=== PATIENT | female | born 1955 | race Caucasian/White ===

== ENCOUNTER 2020-01-30 22:08 | Inpatient (IN) | payer OTHER ==
[~2020-01-30] VITALS: Ht 167.6 cm; Wt 82.6 kg
[2020-01-30 23:25] VITALS: BP 113/52
[2020-01-31] VITALS (14 sets, daily range): BP systolic 88–118; BP diastolic 48–59
[2020-01-31 00:41] LABS: CALCIUM 8.6 mg/dL (8.5-10.1); CREATININE 1.6 mg/dL (0.6-1.0); MAGNESIUM 1.8 mg/dL (1.8-2.4); PHOSPHORUS 1.5 mg/dL (2.5-4.9); POTASSIUM 3.4 mmol/L (3.5-5.1)
[2020-01-31 06:08] LABS: ALBUMIN 2.7 g/dL (3.4-5.0); CALCIUM 8.6 mg/dL (8.5-10.1); CREATININE 1.3 mg/dL (0.6-1.0); PHOSPHORUS 1.5 mg/dL (2.5-4.9); POTASSIUM 3.1 mmol/L (3.5-5.1)
--- NOTE | 2020-01-31 07:32 | NUR ---
PATIENT ARRIVED AT THE UNIT AT APPROX 0000. PATIENT IS A/OX4. DENIES SOA, N/V, PAIN. AFEBRILE. ATTACHED TO THE MONITOR. INSILIN GTT STARTED PER ORDER. POTASSIUM AND MAG REPLACED ORDERED. REMAINS ON RA. DENIES NEEDS. ENDOCRINOLOGY ANSWERING SERVICES CONTACTED. METAL OFF BEARER NOT LIVESTOCK BUYER OR AVAILABLE. DAY SHIFT RN WILL CALL HOSPITALIST. REPORT GIVEN TO ONCOMING RN.
[2020-01-31 13:07] LABS: ALBUMIN 2.4 g/dL (3.4-5.0); CALCIUM 8.2 mg/dL (8.5-10.1); CREATININE 1.4 mg/dL (0.6-1.0)
[2020-01-31 13:15] LABS: POTASSIUM 4.2 mmol/L (3.5-5.1)
--- NOTE | 2020-01-31 14:00 | NUR ---
chart review. cm was able to visit with sveta via phone call. into cm and transition of care. she reported lives alone in mobile home. independent, no dme, manage own medication and drives a vehicle. been out of insulin rt can not afford it per pt. education on calling her pcp when out of meds and can not afford them or going to [facility] for medication assistance. 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 sveta reported that when dc her sister will be able to pick her up. when insulin ready from outpt pharm will give to bedside nurse to lock up for dc. per hospitalist anticipate dc home on monday.
[2020-01-31] MEDS ORDERED: LANTUS SUBQ (14:13)
[2020-01-31] MEDS ORDERED: HUMALOG100 UNIT/1 SUBQ (14:13)
--- NOTE | 2020-01-31 17:25 | NUR ---
Pt transfered to floor from icu per at 1700 i stable condition. Assessment completed.vss. blood sugar was 338. insulin given as ordered and dinner tray gien.No verbal c/o.Will continue to monitor.
[2020-02-01 00:06] LABS: GLYCOHEMOGLOBIN (HGB A1C) 14.2 % (4.8-5.6)
--- NOTE | 2020-02-01 02:51 | NUR ---
Assumed care of patient this pm shift. Patient alert and orient x4. Patient takes medications whole. Vital signs stable. Patient continent of bowel and bladder. Falls precautions in place. Patient states that she would like a stool softener. RN spoke to Practioner and Colace was ordered bid. Patient shows no signs of acute distress. Patient sleeping off and on through the night. We will continue to monitor per hospital policy.
[2020-02-01 06:00] LABS: HEMATOCRIT 31.3 % (37.0-47.0); HEMOGLOBIN 10.8 gm/dL (12.0-15.0); MCHC 34.5 g/dL (28.0-37.0); MCV 90.1 fL (80.0-100.0); PLATELET COUNT 100 thou/uL (150-400); RBC 3.48 mil/uL (4.20-5.00); RDW 16.9 % (10.5-14.5); WBC 3.1 thou/uL (4.0-11.0)
[2020-02-01 06:10] LABS: ALBUMIN 2.5 g/dL (3.4-5.0); CALCIUM 8.2 mg/dL (8.5-10.1); CREATININE 1.5 mg/dL (0.6-1.0); POTASSIUM 4.5 mmol/L (3.5-5.1); TOTAL BILIRUBIN 0.6 mg/dL (0.2-1.0); TOTAL PROTEIN 4.9 g/dL (6.4-8.2)
[2020-02-01 06:40] LABS: PLATELET ESTIMATE NORMAL
[2020-02-01 08:47] VITALS: BP 113/65
--- NOTE | 2020-02-01 13:39 | NUR ---
Received awake on bed. Due medications given as prescribed, able to swallow meds w/o difficulty. On room air. Vital signs stable. On MS, not on telemetry; no complains and signs of chest pain, crushing sensation and heaviness. On carb controlled diet, tolerating well; no nausea, no vomiting and no abdominal pain noted. On blood sugar monitoring, taken and recorded accordingly, with sliding scale insulin ordered, given as prescribed. Wuth SL at R AC- intact and flushign well. Falls bundle in place. Continent of bowel and bladder, able to use gait belt, walker and minimum to standby assist. Pt complained of constipation- due scheduled dose of colace given as prescribed. ED called, pt's relative called to bring pt's stuff; no designated visitor on the system, pt asked if she is agreeable to put Cinthia Casarez as designated visitor, informed her that no changes can be made afterwards; pt agreed. To continue monitoring patient.
[2020-02-01 15:19] VITALS: BP 101/52
[2020-02-01 19:45] VITALS: BP 101/60
--- NOTE | 2020-02-02 02:27 | NUR ---
PATIENT ALERT AND ORIENTED X4. UP WITH WALKER AROUND THE UNIT X2, WITHOUT ASSIST. BS MONITORED PER ORDER. PLEASANT AND COOPERATIVE. WILL MONITOR.
[2020-02-02 08:03] VITALS: BP 99/61
--- NOTE | 2020-02-02 12:49 | NUR ---
ASSUMED PT CARE THIS AM. PT VSS. PT TO DISCHARGE HOME TODAY. BLOOD SUGAR TAKEN CARE OF WITH INSULIN PER EMAR. PT COMPLAINS OF NO PAIN. ABLE TO REPOSITION SELF. PT STATES THAT SHE WANTS A BATH AND THEN CAN BE DISCHARGED.
== END 2020-02-02 13:48 | disposition home or self-care (01) | DRG 637 ==
LOC: EDBD 22:08 → ICU 22:08 → 4W 01-31 16:45
PROVIDERS: Nurse Practitioner Family; ADMIT Hospitalist; ATTEND Hospitalist
DX: E11.10 Type 2 diabetes mellitus with ketoacidosis without coma (principal); N17.0 Acute kidney failure with tubular necrosis; E43 Unspecified severe protein-calorie malnutrition; I12.9 Hypertensive chronic kidney disease with stage 1 through stage 4 chronic kidney disease, or unspecified chronic kidney disease; N18.9 Chronic kidney disease, unspecified; E11.22 Type 2 diabetes mellitus with diabetic chronic kidney disease; E87.6 Hypokalemia; R53.1 Weakness; Z20.828 Contact with and (suspected) exposure to other viral communicable diseases; Z85.528 Personal history of other malignant neoplasm of kidney; Z90.5 Acquired absence of kidney; Z98.42 Cataract extraction status, left eye; Z98.41 Cataract extraction status, right eye; Z98.891 History of uterine scar from previous surgery; Z91.14 Patient's other noncompliance with medication regimen
CPT/HCPCS: 10047; 10204